=== PATIENT | female | born 1995 | race Hispanic/Latino ===

== ENCOUNTER 2017-12-24 06:06 | Day surgery (SDC) | payer OTHER ==
[2017-12-21 11:49] VITALS: BMI 22.8
[2017-12-24] MEDS ORDERED: Bupivacaine 0.25% 20 ML INJ IJ ONE (07:28)
[2017-12-24] MEDS ORDERED: Lidocaine/Epinephrine 1% 1:100000 10 ML IJ ONE ×2 (07:29→07:50)
[2017-12-24] MEDS ORDERED: Midazolam 2 MG/2 ML VIAL ONE ×2 (07:32→08:56)
[2017-12-24] MEDS ORDERED: ceFAZolin IV 1 gm in Dextrose 0 GM/0 ML BAG IVPB ONE (07:49)
[2017-12-24] MEDS ORDERED: Propofol 10 mg/ml Inj (20 ML) ONE (08:33)
[2017-12-24] MEDS ORDERED: ceFAZolin IV 2 gm in Dextrose 2 GM/50 ML BAG IVPB ONE (08:43)
[2017-12-24 11:35] LABS: BLOOD UREA NITROGEN 11 mg/dL (7-17); CALCIUM 9.2 mg/dl (8.6-10.4); GFR AFRICAN-AMERICAN > 60; GFR NON-AFRICAN AMERICAN > 60
[2017-12-24 12:02] VITALS: O2SAT 100
--- NOTE | 2017-12-24 13:23 | CP.PCM.PCO ---
Assessment & Plan - Assessment and Plan (Free Text) Assessment: pt is a 22 yo female no sig pmh sp excision of lipoma. Sp procedure pt had increased frequency of PVC. Labs wnl. 12 lead ekg showed pvcs. At this time, will discharge patient and have her follow up with a service station cashier as an outpatient. D/w with patient and family.
[2017-12-24 14:42] VITALS: BP 109/58; PULSE 70; RESP 17; TEMP 97.7
--- NOTE | 2017-12-25 02:35 | OP ---
Copied To: Yuan León MD Attending MD: Yuan León MD PROCEDURE DATE: 12/24/2017 PREOPERATIVE DIAGNOSIS: Multiple enlarging mole of right chest and back area. POSTOPERATIVE DIAGNOSIS: Multiple enlarging mole of right chest and back area. PROCEDURES DONE: 1. Wide local excision of the right chest and breast area mole, 0.5 x 0.5 cm size. 2. Wide local excision of right side of the back upper, 0.5 x 0.5 cm size. 3. Wide local excision of mole of right side of the back, middle, 0.5 x 0.5 cm size. 4. Wide local excision of mole of the right side of the back, lower, 0.5 x 0.5 cm size. 5. Wide local excision of mole on the left side of the back, lower-lower, 0.5 x 1 cm size. 6. Wide local excision of mole of the left side of the back, lower-upper, 0.5 x 0.5 size. 7. Wide local excision of the mole on the left side of the back, upper-lower, 0.5 x 0.5 cm size. 8. Wide local excision of the mole on the left side of back, upper-upper, 0.5 x 0.5 cm size. SURGEON: Yuan León MD ANESTHESIA: Local anesthesia plus sedation. ESTIMATED BLOOD LOSS: Around 10 mL. DRAINS: None. COMPLICATIONS: None. PATHOLOGY: All the moles were sent separately. The number one is right chest and breast area; second one is right side of back upper; third is right side of the back middle; fourth is right side of the back lower; the fifth one is left side of the back lower-lower; sixth one is the left side of the back lower-upper; the seventh one is left side of the back upper-lower; and eighth one is left side of the back upper-upper. INTRAOPERATIVE FINDINGS: The patient had multiple variable size moles of back and right chest. DESCRIPTION OF PROCEDURE: On intraoperative steps, this is a 22-year-old female who was diagnosed with multiple enlarging moles of right chest and upper back, and the patient was consented for the wide local excision, brought to the OR, placed supine on the operating table. After induction of the sedation, the right chest and the breast was prepped and draped. An elliptical incision was made and a wide local excision of the mole of the right chest and the breast area was done. The wound was closed in one layer with 4-0 Monocryl and dry sterile dressing was applied. Now, the patient was placed in a prone position. Again, the prepping and draping of the back area was done under sterile condition and wide local excision of the right side of the back, upper, middle, and lower mole was done, and they were all sent separately and all the wounds were closed with 4-0 Monocryl continuous suture, and now the wide local excision of the left side of the back lower-lower, lower-upper, upper-lower, and upper-upper moles were excised, and the wound was closed in one layer with 4-0 Monocryl at all the moles on the left side, and the dry sterile dressing was applied. The patient was reversed from sedation, sent to the postanesthesia care unit in stable condition. There was no apparent complication. Yuan León MD
--- NOTE | 2017-12-28 19:27 | CARD ---
APPROVED REPORT Date of service: 12/24/2017 EKG Measurement Heart [id number] <Conclusion> Sinus bradycardia with frequent premature ventricular complexes Otherwise normal ECG
== END 2017-12-24 13:25 | disposition home or self-care (01) ==
LOC: C.SDS 06:06
PROVIDERS: ATTEND Surgery Surgical Critical Care
DX: D22.5 Melanocytic nevi of trunk (principal); I49.3 Ventricular premature depolarization; D24.1 Benign neoplasm of right breast
CPT/HCPCS: 11400; 11404; 36415; 80048; 82310; 83735; 84100; 88305; J0690; J1885; J2250; J2405; J2704; J3010